=== PATIENT | female | born 1990 | race Caucasian/White ===

== ENCOUNTER 2023-12-11 14:48 | Outpatient (CLI) | payer MEDICAID, SELFPAY ==
--- OUTSIDE RECORDS SUMMARY | 2023-12-30 08:27 | XMS_ITS | Referral Summary ---
Author Organization [place] Address [address] [place] [address] Care Team Providers Care Meat Cutter Apprentice Name Role Phone [facility] Primary [facility] Provider Allergies No known active allergies Medications Medication Sig Dispensed Refills Start Date End Date Status Vit-Fe Fumarate-FA ( MULTIVITAMIN PLUS IRON) 27-0.8 MG TABS per tabletIndications:Pregn kelly Take 1 tablet by mouth daily Active vitamin B complex with vitamin C (VITAMIN B COMPLEX) TABS tablet Take 1 tablet by mouth daily Active Active Problems Problem Noted Date Diagnosed Date Indication for care in labor and delivery, deliv ered 09/07/2016 Labor and delivery, indication for care 09/06/19 17 Social History Tobacco Use Types Packs/Day Years Used Date Smoking Tobacco: Never Smokeless Tobacco: Never Alcohol Use Standard Drinks/Week Comments No 0 (1 standard drink = 0.6 oz pur e alcohol) Adolescent Education Answer Date Record ed Getting School Help Needed Not on file 05/22 Sex and Gender Information Value Date Recorded Sex Assigned at Not on file Gender Identity Not on file Sexual Orientation Not on file Last Filed Vital Signs Vital Sign Reading Time Taken Comments Blood Pressure 113/61 01/18/2018 10:24 AM CDT Pulse - - Temperature 37 ??C (98.6 ??F) 01/18/2018 10:24 AM CDT Respiratory Rate 18 01/18/2018 10:24 AM CDT Oxygen Saturation 99% 01/18/2018 10:24 AM CDT Inhaled Oxygen Concentration - - Weight 80 kg (176 lb 5.9 oz) 01/18/2018 10:29 AM CDT Height 175.3 cm (5' 9) 09/06/2016 7:56 PM SUPERINTENDENT CUSTODIAN JANITOR Body Mass Index 26.05 09/06/2016 7:56 PM SUPERINTENDENT CUSTODIAN JANITOR Plan of Treatment Not on file Procedures Procedure Name Priority Date/Time Associated Diagnosis Comments HIV ANTIGEN ANTIBODY COMBO STAT 09/06/2016 8:20 PM SUPERINTENDENT CUSTODIAN JANITOR from Last 3 Months or Most Recently Relevant to Health Maintenance Results * HIV Antigen Antibody Combo (09/06/2016 8:20 PM SUPERINTENDENT CUSTODIAN JANITOR) HIV Antigen Antibody Combo Nonreactive HIV-1 p24 Ag & HIV-1/HIV-2 Ab Not Detected NR [facility] Blood specimen (specimen) 09/06/2016 8:20 PM SUPERINTENDENT CUSTODIAN JANITOR 09/06/2016 8:29 PM SUPERINTENDENT CUSTODIAN JANITOR China Kennedy MD LAB - BLOOD ORD ERABLES [facility] [address] [place] [address] from Last 3 Months or Most Recently Relevant to Health Maintenance Care Teams Meat Cutter Apprentice Relationship Specialty Start Date End Date [facility] - [facility] [address] [place] [address] PCP - General 01/18/18
--- OUTSIDE RECORDS SUMMARY | 2023-12-30 08:27 | XMS_ITS | Clinical Summary ---
Author Organization [facility] s [facility] Address [place], [place] [address] Care Team Providers Care Wire Hanger Name Role Phone Pcp, No Primary Care Provider Unavailabl e Allergies No known active allergies Medications Medication Sig Dispensed Refills Start Date End Date Status ibuprofen (MOTRIN IB) 200 mg tabletIndications : (normal spontaneous vaginal delivery) Take 4 tablets by mouth 3 times daily with meals. Take with food. 90 tablet 12/25/2018 Active acetaminophen (TYLENOL) 325 mg tabletIndications : (normal spontaneous vaginal delivery) Take 1-2 tablets by mouth every 4 hours if needed (mild pain). Max acetaminophen dose: 4000mg in 24 hrs. 100 tablet 12/25/2018 Active vitamin-folic acid 1 mg ( RX) tablet/capsule Take 1 tablet by mouth once daily. 90 tablet 3 Active docusate (COLACE) 100 mg capsuleIndication s: (normal spontaneous vaginal delivery) Take 1 capsule by mouth 2 times daily. 100 capsule 12/25/2018 Active Active Problems Problem Noted Date Diagnosed Date Rubella non-immune status, antepartum 12/25/2018 Tetanus, diphtheria, and trudy llular pertussis (Tdap) vaccination declined 12/25/2018 HSV (herpes simplex virus) infection 12/25/2018 (normal spontaneous vaginal delivery) 12/25 Resolved Problems Problem Noted Date Diagnosed Date Resolved Date Multigravida in third trimester 12/25/2018 12/25/2018 Anemia affecting in third trimester 12/26/19 19 12/25/2018 Social History Tobacco Use Types Packs/Day Years Used Date Smoking Tobacco: Never Smokeless Tobacco: Never Alcohol Use Standard Drinks/Week Comments Not Currently 0 (1 standard drink = 0.6 oz pur e alcohol) Sex and Gender Information Value Date Recorded Sex Assigned at Not on file Gender Identity Not on file Sexual Orientation Not on file Obstetrics History Para Term AB IAB SAB Ectopic Multiple Livin g Live Births 6 5 5 1 1 4 4 Date Outcome GA Total Labor Labor/2nd/3rd Weight Sex Delivery Anes PTL Kelley A1 A5 Name Cl in Term Term Term Term SAB 12/25 Term 39w 6d 3.8 kg (8 lb 6 oz) M Vag Epidu ral Melody ng 8 9 LEBAR ON,BB HONG LLE Delivery Location:[facility] [id number] [place]) Last Filed Vital Signs Vital Sign Reading Time Taken Comments Blood Pressure 102/50 12/26/2018 8:18 AM CDT Pulse 66 12/26/2018 8:18 AM CDT Temperature 36.6 ??C (97.9 ??F) 12/26/2018 8:18 AM CD T Respiratory Rate 16 12/26/2018 8:18 AM CDT Oxygen Saturation 98% 12/26/2018 8:18 AM CDT Inhaled Oxygen Concentration - - Weight 87.4 kg (192 lb 9.6 oz) 12/24/2018 8:33 P M CDT Height 175.3 cm (5' 9) 12/24/2018 8:33 PM CDT Body Mass Index 28.44 12/24/2018 8:33 PM CDT Plan of Treatment Not on file Advance Directives * Full Code (Latest Code Status on File) Date Activated Date Inactivated Comments 12/25/2018 3:49 AM 12/26/2018 11:06 AM Care Teams Wire Hanger Relationship Specialty Start Date End Date Pcp, No . PCP - General 12/08/18
--- OUTSIDE RECORDS SUMMARY | 2023-12-30 08:27 | XMS_ITS | Clinical Summary ---
Author Organization [place] Address [address] [place] [address] Care Team Providers Care Furnace Liner Name Role Phone [facility] Primary [facility] Provider Allergies No known active allergies Medications [...] 175.3 cm (5' 9) 09/06/2016 7:56 PM FRONT TENDER Body Mass Index 26.05 09/06/2016 7:56 PM FRONT TENDER Plan of Treatment Health Maintenance Due Date Last Done Comments ADVANCE CARE PLANNING 1990 ANNUAL REVIEW OF HM ORDERS 1990 YEARLY PREVENTIVE VISIT 1990 HEPATITIS C SCREENING 2008 HEPATITIS B IMMUNIZATION (1 of 3 - 19+ 3-dose series) 2009 PAP 2011 DTAP/TDAP/TD IMMUNIZATION (1 - Tdap) 2015 COVID-19 Vaccine (1 - 2022-2 4 season) 2023 PHQ-2 (once per calendar year) 2023 INFLUENZA VACCINE (Season Ended) 2024 HIV SCREENING Completed 09/06/2016 HPV IMMUNIZATION Aged Out No longer e ligible based on patient's age to complete this topic IPV IMMUNIZATION Aged Out No longer e ligible based on patient's age to complete this topic MENINGITIS IMMUNIZATION Aged Out No l onger eligible based on patient's age to complete this topic Pneumococcal Vaccine: Pediat rics (0 to 5 Years) and At-Risk Patients (6 to 64 Years) Aged Out No longer eligi ble based on patient's age to complete this topic RSV MONOCLONAL ANTIBODY Aged Out No l onger eligible based on patient's age to complete this topic Procedures Procedure Name Priority Date/Time Associated Diagnosis Comments HIV ANTIGEN ANTIBODY COMBO STAT 09/06/2016 8:20 PM FRONT TENDER from Last 3 Months or Most Recently Relevant to Health Maintenance Results * HIV Antigen Antibody Combo (09/06/2016 8:20 PM FRONT TENDER) HIV Antigen Antibody Combo Nonreactive HIV-1 p24 Ag & HIV-1/HIV-2 Ab Not Detected NR [facility] Blood specimen (specimen) 09/06/2016 8:20 PM FRONT TENDER 09/06/2016 8:29 PM FRONT TENDER China Kennedy MD LAB - BLOOD ORD ERABLES [facility] [address] [place] [address] from Last 3 Months or Most Recently Relevant to Health Maintenance Care Teams Furnace Liner Relationship Specialty Start Date End Date [facility] [address] [place] [address] PCP - General 01/18/18
== END 2023-12-11 14:49 | disposition home or self-care (01) ==
LOC: NFLDREF 12-30 08:25
PROVIDERS: Visit Provider Advanced Practice Midwife
DX: Z34.91 Encounter for supervision of normal pregnancy, unspecified, first trimester (principal)
CPT/HCPCS: 86592; 86703; 86704; 86706; 86762; 86787; 86803; 86850; 86900; 86901; 87086; 87340

== ENCOUNTER 2024-02-07 13:03 | Outpatient (CLI) | payer MEDICAID, SELFPAY ==
--- NOTE | 2024-02-07 13:45 | CRLHL7_ITS ---
For Patients: As a result of the Century Cures Act, medical imaging exams and procedure reports are released immediately into your electronic medical record. You may view this report before your referring provider. If you have questions, please contact your health care provider. INDICATION: Evaluate anatomy. COMPARISON: none TECHNIQUE: Real time moses scale imaging of the fetus was performed as well as color Doppler analysis of the umbilical vessels. FINDINGS: Sonographic imaging demonstrates a single living intrauterine gestation. Fetus demonstrates a regular cardiac rate of 157 beats per minute. Fetus has a vertex. The placenta lies anteriorly without evidence of placenta previa. Edge of the placenta is located 5.5 cm from the internal cervical os. Amniotic fluid volume appears normal. Single deepest vertical pocket: 5.5 cm. The cervix is closed and measures 4.3 cm in length. The composite ultrasound gestational age is calculated at 20 weeks 3 days with an estimated sonographic due date of 06/23/2024. The estimated weight is 334 grams which lies at the 84th %. The following biometric measurements were obtained: Biparietal diameter: 4.9 cm/20 weeks 5 days 92nd% Head circumference: 17.5 cm/20 weeks 0 days 69th% Abdominal circumference: 15.1 cm/20 weeks 2 days 75th% Femur length: 3.2 cm/19 weeks 6 days 59th% The HC/AC ratio measures: 1.15 range (1.07-1.25) On anatomic survey, there is a normal appearance of the cerebral ventricles, cavum septi pellucidi, cisterna magna and cerebellum. The nose, lips, and facial profile appear normal. The cervical, thoracic and lumbar spine are well visualized and appear normal. There is a normal four-chamber heart view and the left and right ventricular outflow tracts appear normal. The diaphragm and stomach appear normal. The kidneys and bladder also appear normal. There is a normal three-vessel cord and cord insertion site. The four extremities appear normal. IMPRESSION: Normal OB ultrasound exam with concordance of clinical and sonographic dating. No intrinsic abnormalities noted on anatomic survey. Dictated by Jonas Martin MD @ 02/07/2024 4:01:21 PM (Electronically Signed)
== END 2024-02-07 13:04 | disposition home or self-care (01) ==
LOC: US 13:03
PROVIDERS: Visit Provider Advanced Practice Midwife
DX: Z34.92 Encounter for supervision of normal pregnancy, unspecified, second trimester (principal); Z3A.20 20 weeks gestation of pregnancy
CPT/HCPCS: 76805

== ENCOUNTER 2024-04-08 10:27 | Outpatient (CLI) | payer MEDICAID, SELFPAY ==
--- OUTSIDE RECORDS SUMMARY | 2024-04-12 13:25 | XMS_ITS | Referral Summary ---
Author Organization [place] Address [address] [place] [address] Care Team Providers Care Associate Director Qa Name Role Phone [facility] Primary [facility] Provider Allergies No known active allergies Medications [...] 175.3 cm (5' 9) 09/06/2016 7:56 PM HOSPITALITY AIDE Body Mass Index 26.05 09/06/2016 7:56 PM HOSPITALITY AIDE Plan of Treatment Not on file Care Teams Associate Director Qa Relationship Specialty Start Date End Date [facility] [address] [place] [address] PCP - General 01/18/18
--- OUTSIDE RECORDS SUMMARY | 2024-04-12 13:25 | XMS_ITS | Clinical Summary ---
Author Organization [place] Address [address] [place] [address] Care Team Providers Care Refinisher Name Role Phone [facility] Primary [facility] Provider Allergies No known active allergies [...] 175.3 cm (5' 9) 09/06/2016 7:56 PM PHYSICIAN'S AIDE Body Mass Index 26.05 09/06/2016 7:56 PM PHYSICIAN'S AIDE Plan of Treatment Not on file Care Teams Refinisher Relationship Specialty Start Date End Date [facility] [address] [place] [address] PCP - General 01/18/18
--- OUTSIDE RECORDS SUMMARY | 2024-04-12 13:25 | XMS_ITS | Clinical Summary ---
Author Organization [facility] Address [place], [place] [address] Care Team Providers Care Clinical Lab Clerk Name Role Phone Pcp, No Primary Care [...] Outcome GA Total Labor Labor/2nd/3rd Weight Sex Type Anes PTL Kelley A1 A5 Name Clin Term Term Term Term SAB 2018 Term 39w 6d 3.8 kg (8 lb 6 oz) M Vag Epidur al Livin g 8 9 JACKSON Greer,BB GIANCARLO CAMEJO Delivery Location:[facility] ([facility] [id number] [place]) Last Filed Vital Signs Vital Sign Reading [...] 3:49 AM 12/26/2018 11:06 AM Care Teams Clinical Lab Clerk Relationship Specialty Start Date End Date Pcp, No . PCP - General 12/08/18
== END 2024-04-08 10:28 | disposition home or self-care (01) ==
LOC: NFLDREF 04-12 13:23
PROVIDERS: Visit Provider Advanced Practice Midwife
DX: Z34.83 Encounter for supervision of other normal pregnancy, third trimester (principal)
CPT/HCPCS: 86592

== ENCOUNTER 2024-05-01 09:23 | Outpatient (CLI) | payer MEDICAID, SELFPAY ==
--- OUTSIDE RECORDS SUMMARY | 2024-05-01 09:26 | XMS_ITS | Clinical Summary ---
Author Organization [employer] [facility] Address [place], [place] [address] Care Team Providers Care Director Of Global Sales Name Role Phone Pcp, No Primary Care [...] 8 9 JACKSON Greer,BB GIANCARLO CAMEJO Delivery Location:[facility] [id number] [place]) Last Filed Vital Signs Vital Sign Reading [...] 3:49 AM 12/26/2018 11:06 AM Care Teams Director Of Global Sales Relationship Specialty Start Date End Date Pcp, No . PCP - General 12/08/18
--- OUTSIDE RECORDS SUMMARY | 2024-05-01 09:26 | XMS_ITS | Referral Summary ---
Author Organization [place] Address [address] [place] [address] Care Team Providers Care Mop Handle Assembler Name Role Phone [facility] Primary [facility] [...] 175.3 cm (5' 9) 09/06/2016 7:56 PM IV RN Body Mass Index 26.05 09/06/2016 7:56 PM IV RN Plan of Treatment Not on file Care Teams Mop Handle Assembler Relationship Specialty Start Date End Date [facility] [address] [place] [address] PCP - General 01/18/18
--- OUTSIDE RECORDS SUMMARY | 2024-05-01 09:26 | XMS_ITS | Clinical Summary ---
Author Organization [place] Address [address] [place] [address] Care Team Providers Care Imaging Scheduler Name Role Phone [facility] Primary [facility] Provider Allergies No known active allergies Medications [...] 175.3 cm (5' 9) 09/06/2016 7:56 PM CATERING SERVER Body Mass Index 26.05 09/06/2016 7:56 PM CATERING SERVER Plan of Treatment Not on file Care Teams Imaging Scheduler Relationship Specialty Start Date End Date [facility] [address] [place] [address] PCP - General 01/18/18
[2024-05-01 09:48] VITALS: BP 116/59; PULSE 90; TEMP 36.8
[2024-05-01 10:11] LABS: Amnisure Rom* Negative
--- NOTE | 2024-05-01 10:29 | PC.OBNST ---
NST Note NST Note Start: 05/01/24 09:25 Freq: ONCE Status: Complete Protocol: Document 05/01/24 10:17 JOSEPHINE (Rec: 05/01/24 10:19 JOSEPHINE Desktop) NST Note 8 Para (# of births) 6 EDC 06/30/24 Gestational Age In Weeks & Days 31 Weeks & 3 Days Patient Presented with Complaint(s) of Contractions/cramping,Leaking fluid Other Complaints Pt was having intercourse last night around 2100, reported a large gush of watery fluid and cramping an hour after fluid gush that has been irregular but has been continuing into this morning. When asked about timing of cramping, patient reported that she has been trying to ignore it and does not know how often or how long cramps last. Denies continuous leaking. Reactive Yes Appropriate for Gestational Age Yes GRAHAM Mahajan Date 05/01/24 Reactive Yes Appropriate for Gestational Age Yes GRAHAM South Date 05/01/24 OB NST charge Yes Complete NST Note via Write Note Yes The provider's electronic signature indicates the NST is reactive/appropriate for gestational age. *Note to provider: If an addendum is required, open the patient's chart and click on the note under the Nurse/Allied Health tab.
== END 2024-05-01 10:30 | disposition home or self-care (01) ==
LOC: OB OUT 09:24 → OB 09:24
PROVIDERS: Visit Provider Midwife
DX: O47.03 False labor before 37 completed weeks of gestation, third trimester (principal); Z3A.31 31 weeks gestation of pregnancy
CPT/HCPCS: 59025; 84112; G0463

== ENCOUNTER 2024-06-03 15:23 | Outpatient (CLI) | payer MEDICAID, SELFPAY ==
--- OUTSIDE RECORDS SUMMARY | 2024-06-05 05:55 | XMS_ITS | Clinical Summary ---
Author Organization [place] Address [address] [place] [address] Care Team Providers Care Inbound Call Center Representative Name Role Phone [facility] Primary [facility] Provider Allergies No known active [...] on file Legal Sex Female 5:13 AM DISEASE CONTROL INSPECTOR Gender Identity Not on file Sexual Orientation [...] 175.3 cm (5' 9) 09/06/2016 7:56 PM DISEASE CONTROL INSPECTOR Body Mass Index 26.05 09/06/2016 7:56 PM DISEASE CONTROL INSPECTOR Plan of Treatment Not on file Care Teams Inbound Call Center Representative Relationship Specialty Start Date End Date [facility] [address] [place] [address] PCP - General 01/18/18
--- OUTSIDE RECORDS SUMMARY | 2024-06-05 05:55 | XMS_ITS | Clinical Summary ---
Author Organization [employer] [facility] Address [place], [place] [address] Care Team Providers Care Snap Attacher Name Role Phone Pcp, No Primary Care [...] 8 9 JACKSON Greer,BB GIANCARLO CAMEJO Delivery Location:[facility] ([facility] [id number] [place]) Last Filed Vital Signs Vital Sign Reading [...] 3:49 AM 12/26/2018 11:06 AM Care Teams Snap Attacher Relationship Specialty Start Date End Date Pcp, No . PCP - General 12/08/18
--- OUTSIDE RECORDS SUMMARY | 2024-06-05 05:55 | XMS_ITS | Referral Summary ---
Author Organization [place] Address [address] [place] [address] Care Team Providers Care Fixer Supervisor Name Role Phone [facility] Primary [facility] Provider Allergies No known active allergies [...] on file Legal Sex Female 5:13 AM FIELD TECHNICAL SPECIALIST Gender Identity Not on file Sexual Orientation [...] 175.3 cm (5' 9) 09/06/2016 7:56 PM FIELD TECHNICAL SPECIALIST Body Mass Index 26.05 09/06/2016 7:56 PM FIELD TECHNICAL SPECIALIST Plan of Treatment Not on file Care Teams Fixer Supervisor Relationship Specialty Start Date End Date [facility] [address] [place] [address] PCP - General 01/18/18
== END 2024-06-03 15:24 | disposition home or self-care (01) ==
LOC: NFLDREF 06-05 05:53
PROVIDERS: Visit Provider Advanced Practice Midwife
DX: Z34.93 Encounter for supervision of normal pregnancy, unspecified, third trimester (principal); Z3A.36 36 weeks gestation of pregnancy
CPT/HCPCS: 87081; 87653

== ENCOUNTER 2024-06-04 15:00 | Outpatient (CLI) | payer MEDICAID, SELFPAY ==
--- NOTE | 2024-06-04 15:00 | CRLHL7_ITS ---
For Patients: As a result of the Century Cures Act, medical imaging exams and procedure reports are released immediately into your electronic medical record. You may view this report before your referring provider. If you have questions, please contact your health care provider. INDICATION: Third trimester scan, evaluate growth. Small for dates. COMPARISON: 02/07/2024 TECHNIQUE: Real time moses scale imaging of the fetus was performed. FINDINGS: Sonographic imaging demonstrates a single living intrauterine gestation. Fetus demonstrates a regular cardiac rate of 142 beats per minute. Fetus has a vertex position. The placenta lies anterior. Amniotic fluid volume appears normal and there is a single deepest vertical pocket: 7.1 cm. The estimated weight is 3172gm which lies at the 79th %. On the prior OB ultrasound exam dated 02/07/2024 the estimated weight was at the 84th%. BPD and HC greater than 97th percentile. AC 57th percentile. FL 45th percentile. The HC/AC ratio measures 1.10 range (0.87-1.06). IMPRESSION: Sonographic gestational age 38 weeks 6 days and sonographic due date 06/12/2024. Sonographic age 18 days ahead of the clinical age. Estimated weight 79th percentile. Abdominal circumference 57th percentile. BPD and HC greater than 97th percentile. Dictated by Jonas Martin MD @ 06/05/2024 12:53:59 PM (Electronically Signed)
--- OUTSIDE RECORDS SUMMARY | 2024-06-04 15:02 | XMS_ITS | Referral Summary ---
Author Organization [place] Address [address] [place] [address] Care Team Providers Care Transport Engineer Name Role Phone [facility] Primary [facility] Provider Allergies No known active allergies Medications Vit-Fe Fumarate-FA ( MULTIVITAMIN PLUS IRON) 27-0.8 MG TABS per tabletIndications : Take 1 tablet by mouth daily Active [...] School Help Needed Not on file 05/22 Comments Unknown Sex and Gender Information Value Date Recorded Sex Assigned at Not on file Legal Sex Female 5:13 AM PRACTICE LEAD Gender Identity Not on file Sexual Orientation [...] 175.3 cm (5' 9) 09/06/2016 7:56 PM PRACTICE LEAD Body Mass Index 26.05 09/06/2016 7:56 PM PRACTICE LEAD Plan of Treatment Not on file Care Teams Transport Engineer Relationship Specialty Start Date End Date [facility] [address] [place] [address] PCP - General 01/18/18
--- OUTSIDE RECORDS SUMMARY | 2024-06-04 15:02 | XMS_ITS | Clinical Summary ---
Author Organization [employer] [facility] s & [facility] Address [place], [place] [address] Care Team Providers Care Home Health Administrator Name Role Phone Pcp, No Primary Care [...] 8 9 JACKSON Greer,BB GIANCARLO CAMEJO Delivery Location:[facility] ([facility] [id number] [place]) Last Filed Vital Signs Vital Sign Reading [...] 3:49 AM 12/26/2018 11:06 AM Care Teams Home Health Administrator Relationship Specialty Start Date End Date Pcp, No . PCP - General 12/08/18
--- OUTSIDE RECORDS SUMMARY | 2024-06-04 15:02 | XMS_ITS | Clinical Summary ---
Author Organization [place] Address [address] [place] [address] Care Team Providers Care Vault Clerk Name Role Phone [email or web address] Primary [facility] Provider Allergies No known active allergies [...] on file Legal Sex Female 5:13 AM CANE SPLICER Gender Identity Not on file Sexual Orientation [...] 175.3 cm (5' 9) 09/06/2016 7:56 PM CANE SPLICER Body Mass Index 26.05 09/06/2016 7:56 PM CANE SPLICER Plan of Treatment Not on file Care Teams Vault Clerk Relationship Specialty Start Date End Date [facility] [[email or web address]] [address] [place] [address] PCP - General 01/18/18
== END 2024-06-04 15:01 | disposition home or self-care (01) ==
LOC: US 15:00
PROVIDERS: Visit Provider Advanced Practice Midwife
DX: O36.5930 Maternal care for other known or suspected poor fetal growth, third trimester, not applicable or unspecified (principal); Z3A.38 38 weeks gestation of pregnancy
CPT/HCPCS: 76816; 82728

== ENCOUNTER 2024-06-29 23:09 | Inpatient (IN) | payer MEDICAID, SELFPAY ==
--- OUTSIDE RECORDS SUMMARY | 2024-06-29 23:09 | XMS_ITS | Clinical Summary ---
Author Organization [facility] s [facility] Address [place], [place] [address] Care Team Providers Care Auto Body Detailer Name Role Phone Pcp, No Primary Care [...] Epidur al Livin g 8 9 JACKSON Greer,LOUIS CAMEJO Delivery Location:[facility] ([facility] [id number] [place]) Last Filed Vital Signs Vital Sign Reading Time Taken Comments Blood Pressure 102/50 12/26/2018 8:18 AM CDT Pulse 66 12/26/2018 8:18 AM CDT Temperature 36.6 C (97.9 F) 12/26/2018 8:18 AM CDT Respiratory Rate 16 12/26/2018 8:18 AM CDT [...] 3:49 AM 12/26/2018 11:06 AM Care Teams Auto Body Detailer Relationship Specialty Start Date End Date Pcp, No . PCP - General 12/08/18
--- OUTSIDE RECORDS SUMMARY | 2024-06-29 23:09 | XMS_ITS | Clinical Summary ---
Author Organization [place] Address [address] [place] [address] Care Team Providers Care Food Or Baggage Handling Rampman Name Role Phone [facility] Primary [facility] Provider Allergies No known active allergies [...] on file Legal Sex Female 5:13 AM CHANGE MANAGEMENT FACILITATOR Gender Identity Not on file Sexual Orientation Not on file Last Filed Vital Signs Vital Sign Reading Time Taken Comments Blood Pressure 113/61 01/18/2018 10:24 AM CDT Pulse - - Temperature 37 C (98.6 F) 01/18/2018 10:24 AM CDT Respiratory Rate 18 01/18/2018 10:24 AM CDT Oxygen Saturation 99% 01/18/2018 10:24 AM CDT Inhaled Oxygen Concentration - - Weight 80 kg (176 lb 5.9 oz) 01/18/2018 10:29 AM CDT Height 175.3 cm (5' 9) 09/06/2016 7:56 PM CHANGE MANAGEMENT FACILITATOR Body Mass Index 26.05 09/06/2016 7:56 PM CHANGE MANAGEMENT FACILITATOR Plan of Treatment Not on file Care Teams Food Or Baggage Handling Rampman Relationship Specialty Start Date End Date [facility] [address] [place] [address] PCP - General 01/18/18
--- OUTSIDE RECORDS SUMMARY | 2024-06-29 23:09 | XMS_ITS | Referral Summary ---
Author Organization [facility] Address [address] [place] [id number] Care Team Providers Care Testing Consultant Name Role Phone [facility] Primary [facility] Provider Allergies No known active allergies Medications [...] on file Legal Sex Female 5:13 AM COMMUNICATIONS DIRECTOR Gender Identity Not on file Sexual Orientation [...] 175.3 cm (5' 9) 09/06/2016 7:56 PM COMMUNICATIONS DIRECTOR Body Mass Index 26.05 09/06/2016 7:56 PM COMMUNICATIONS DIRECTOR Plan of Treatment Not on file Care Teams Testing Consultant Relationship Specialty Start Date End Date [facility] [address] [place] [address] PCP - General 01/18/18
[2024-06-29 23:34] VITALS: BMI 29.7
[2024-06-29 23:39] VITALS: BP 117/74; PULSE 88; TEMP 36.8
[2024-06-29 23:40] VITALS: PULSE 88; O2SAT 99
[2024-06-30] VITALS (32 sets, daily range): BP systolic 95–123; BP diastolic 54–68; PULSE 64–107; RESP 16–20; TEMP 36.5–36.8; O2SAT 96–100
[2024-06-30 00:11] LABS: Basophils Absolute Auto 0.04 K/uL (0.00-0.30); Basophils Percent Auto 0.5 % (0.0-3.0); Eosinophils Absolute Auto 0.06 K/uL (0.00-0.50); Eosinophils Percent Auto 0.7 % (0.0-7.0); Hematocrit 34.1 % (33.0-51.0); Hemoglobin* 11.2 gm/dL (12.0-16.0); Immature Granulocytes Abs Auto 0.01 K/uL (0.00-0.30); Immature Granulocytes Pct Auto 0.1 %; Lymphocytes Absolute Auto 2.17 K/uL (0.90-2.90); Mean Corpuscular HGB Conc 33 gm/dL (32-36); Mean Corpuscular Hemoglobin 27 pg (26-34); Mean Corpuscular Volume 83 fL (80-100); Monocytes Percent Auto 6.3 % (0.0-11.0); Neutrophils Absolute Auto 5.55 K/uL (1.7-7.0); Neutrophils Percent Auto 66.4 % (42.0-72.0); Platelet Count* 261 K/uL (140-440); RDW Coefficient of Variation % 12.5 % (11.5-15.5); Red Blood Count 4.13 m/uL (4.00-5.20); White Blood Count* 8.36 K/uL (4.50-11.00)
[2024-06-30 00:12] LABS: Slide Review Reflex No
--- NOTE | 2024-06-30 02:42 | P.LDBA_ITS ---
Subjective History of Present Illness Date Seen: 06/30/24 Narrative: Patient is being admitted to Labor and Delivery for active labor. She is a 33 year old at 39w6d gestation. Her full history and physical was dictated by Rafaela Hammonds CNM on 06/10/2024. Please see this for details. She is starting to feel very shaky and has had a small emesis. She is interested in breaking her water so she can be done, but wants to try and rest a little first. Her and mother are here and supportive. Good FM, no LOF, no vaginal bleeding. She states she is coping well with her labor. Specific Issues/Plans Mother is a Medical Historian in [place], plans to be here around time she is due. H&P done by Sommer Hammonds CNM on 06/10/24 1. Grand Multiparity 2. History of hemorrhage IV in place, plan AMTSL Consider TXA, sent information to her about this via mail; wants in room 3. History of prolonged prodromal labor Pitocin augmentation of labor needed in past deliveries w/ last two deliverie s 4. Rubella nonimmune 5. History of macrosomia 3rd baby was largest at 10lb 2oz 6. Hx of Polyhydramnios w/ previous 7. Son with pyloric stenosis, 6th child Tx to NICU after . Had feeding tube for a few months. Offered Level II US this , declines 8. Son with suspected Myasthenia gravis, 6th child 9. Hx shoulder dystocia, w/ home for 1st, 2nd, and 3rd births Has not had one since 10. Measuring small for dates Growth US: 79% Declines all vaccines OB - Problem Based A/P Additional Plan (1) Grand multiparity: Status: Acute (2) History of shoulder dystocia in prior , currently : Status: Acute (3) History of hemorrhage, currently : Status: Acute (4) : Status: Acute (5) Pain during labor: Status: Acute Plan ASSESSMENT:?? 33 at 39 6/7 weeks gestation?? complicated by:??none, but pertinent past OB history Labor type: Spontaneous, Early/Active labor?? Category 2 FHR pattern.??? Labor complicated by: Hx shoulder dystocia, grand multiparity, Hx PP hemorrhage?? GBS negative? ?? PLAN:?? 1. Routine intrapartum cares as ordered. Continue with expectant management?? 2. Monitoring per policy, continuous or intermittent as indicated?? 3. Planning unmedicated . Candidate for analgesia of choice.??? 4. Patient encouraged to reposition and ambulate to promote physiologic labor and .?? 5. Planning AMTSL. TXA in room for , SL placed. Type and screen sent. Plan to have 2nd nurse in room for .? 6. Anticipate ? OB Exam Physical Exam Vital signs: Temp Pulse BP Pulse Ox 98.2 F 88 117/74 100 06/29/24 23:39 06/29/24 23:39 06/29/24 23:39 06/30/24 02:37 Narrative: Vitals Reviewed Constitutional:? Alert and oriented x3 HEENT:? Normocephalic, atraumatic Neck:? Supple Lungs:? Clear to auscultation bilaterally Heart:? Regular rate and rhythm, no murmur, rub or gallop Abdomen:? Soft, nontender, and gravid. Vertex by Lee's, confirmed with cervical exam. Extremities:? No edema or erythema Cervix: 6 cm/80%/-1 station/vertex/bbow NST: 130 bpm/moderate variability/present accelerations/ intermittent possible late x 1/contractions q 3-4 min
--- NOTE | 2024-06-30 05:23 | P.OBPN_ITS ---
Subjective Date Seen: 06/30/24 Narrative: Yuli came in for spontaneous labor and has made change slowly. She is coping well, but wanted some rest before AROM. Her and mother are here supporting her. She is planning natural . Good FM, no vaginal bleeding. Objective Exam: Objective: Constitutional: Alert and oriented x3, no distress, coping well Vital signs stable, see nurse documentation Abdomen: gravid, contractions palpate moderate with contractions and soft between Cervix: 7 cm/90%/-1 station/vertex, BBOW, AROM clear fluid with consent NST: 140 bpm/moderate variability/accelerations present/no decelerations/contr actions have spaced then changed to intermittent monitoring Vital Signs: Last Vital Signs Temp 98.2 F 06/29/24 23:39 Pulse 77 06/30/24 05:02 BP 105/57 L 06/30/24 05:02 Pulse Ox 100 06/30/24 02:37 Plan Plan: ASSESSMENT:?? 33 at 39 6/7 weeks gestation?? complicated by:??none, but pertinent past OB history Labor type: Spontaneous, Early/Active labor?? Category 2 FHR pattern.??? Labor complicated by: Hx shoulder dystocia, grand multiparity, Hx PP hemorrhage?? GBS negative? ?? PLAN:?? 1. Routine intrapartum cares as ordered. Continue with expectant management, but augmented with AROM per patient reuqest?? 2. Monitoring per policy, intermittent as indicated?? 3. Planning unmedicated . Candidate for analgesia of choice.??? 4. Patient encouraged to reposition and ambulate to promote physiologic labor and .?? 5. Planning AMTSL. TXA in room for , SL placed. Type and screen sent. Plan to have 2nd nurse in room for .? 6. Anticipate ?
[2024-06-30] MEDS: LACTATED RINGERS 1000 ML 1,000 ML 999 ML IV (07:08)
[2024-06-30] MEDS: OXYTOCIN 30 unit/500 ML in NS 30 UNIT/500 ML BAG 300 UNIT IVPB (07:20)
[2024-06-30] MEDS: IBUPROFEN 600 MG TABLET PO ×2 (07:45→20:31)
--- NOTE | 2024-06-30 09:50 | W.PM.OBVAGDE ---
OB Procedure Vag Delivery Mother Details Mother Details: The patient is a 33 year-old, 8, now Para 7, admitted on 06/29/24 at 40.0 weeks gestation. : 8 Para: 7 Weeks Gestation: 40.0 Admission Date: 06/30/24 Additional Details Amniotic Membrane Status: AROM Amniotic Membrane Rupture Date: 06/30/24 Amniotic Membrane Rupture Time: 05:17 Amniotic Membrane Fluid Description: Clear Analgesia/Anesthesia Type: None Waterbirth: No Pitcoin: Yes (AMTSL only) Intrapartal Events: Labor Augmentation Delivery augmentation: rupture of membranes Labor Onset: 01:12 Complete: 07:14 (assumed with pushing) Pushin:14 Heart: heart tones during second stage were category II with deep variable and baby quickly delivering after. Delivery Details Delivery Date: 06/30/24 Delivery Time: 07:15 Route of delivery: Gender: Male Infant Viability: Alive; Heart Rate Present Position at Delivery: OA Delivery Details: Patient was admitted for spontaneous onset of labor and progressed normally. AROM of clear fluid at 0517. Patient requested pain management but was having some heart rate changes that were managed with position change and IV fluids. CNM got urgently called to room as patient suddenly started to feel urge to push. Patient was assumed complete with pushing at 0714. Head delivered as CNM got to bedside gloved. of a viable male at 0715 in semi-reclined position on the bed. Vertex delivered OA with very tight nuchal cord and shoulder dystocia of 40 seconds that resolved easily with Zaira and maternal pushing efforts. Body delivered easily and without incident. Nuchal was reduced after delivery of the body. Infant passed to mothers abdomen with a vigorous cry. Cord was clamped and cut at > 5 minutes. APGARS were 8 at one minute and 8 at five minutes respectively. Mouth was bulb suctioned. Intact placenta with a 3 vessel cord delivered spontaneously at 0726. Fundus firm. Intact perineum identified and repaired in typical fashion. QBL 300 cc. Mother and baby stable; mother plans to breastfeed. Infant weight 8lb 7oz. 1 Minute Interval Total Score: 8 5 Minute Interval Total Score: 8 Additional Details Shoulder Dystocia: Yes Placenta Delivery Time: :26 Placental Delivery Description: Spontaneous Delivery repair: Vicryl Procedure Done: Global Blood Loss: 300 Laceration: None Blood Loss Measurement Type: QBL Bakri Used: No Sponge/Need Count Correct: Yes Cord Vessel Description: 3 Vessels, Nuchal Cord and Reduced (after delivery of body) Event Summary Status: Mother and infant were stable after delivery. Disposition: floor
[2024-07-01 01:58] VITALS: BP 81/41; PULSE 65; RESP 16; TEMP 37.1; O2SAT 97
[2024-07-01 04:01] VITALS: BP 106/63; PULSE 68; RESP 16; TEMP 36.6; O2SAT 96
[2024-07-01 06:31] LABS: Hemoglobin* 10.3 gm/dL (12.0-16.0)
[2024-07-01] MEDS: IBUPROFEN 600 MG TABLET PO (08:34)
[2024-07-01 08:40] VITALS: BP 107/57; PULSE 71; RESP 16; TEMP 36.6; O2SAT 97
--- NOTE | 2024-07-01 10:24 | P.DS_ITS ---
DS: Providers Provider Date Seen: 07/01/24 Date of admission: 06/29/24 23:09 Primary care physician: Not a Local Provider Admitting Clinician: Savannah Workman CNM Attending Physician on discharge: Jessica Hammonds CNM Date of Discharge: 07/01/24 DS: Diagnosis Discharge Diagnosis (1) care and examination immediately after delivery: Status: Acute (2) Lactating mother: Status: Acute Exam Narrative: Exam Narrative: VSS, afebrile GENERAL APPEARANCE: ?normal affect, alert, no distress MOOD: ?appropriate HEENT: normocephalic, neck supple, full ROM CHEST: ?Symmetrical chest wall movement. ?Normal respiratory effort. ?Clear to auscultation HEART: ?regular rate and rhythm ABDOMEN: ?soft, non-tender. Uterine fundus is firm, at Umbilicus, Midline and is appropriate for the stage of recovery. ?Bowel sounds present. PERINEUM: ?mild edema of the perineum, intact. EXTREMITIES: ?normal and no edema Const: Vital Signs, click to edit/add: Vital Signs - 24 hr 06/30/24 13:00 06/30/24 16:00 06/30/24 20:25 Temperature 98.3 F 97.9 F 98.0 F Pulse Rate [Pulse Oximeter] 70 81 73 Respiratory Rate 16 16 18 Blood Pressure [Le ft Arm] 110/64 95/55 L 106/68 Pulse Oximetry 97 98 96 Oxygen Delivery Me thod Room Air Room Air Room Air 07/01/24 01:58 07/01/24 04:01 07/01/24 08:40 Temperature 98.7 F 97.9 F 97.9 F Pulse Rate [Pulse Oximeter] 65 68 71 Respiratory Rate 16 16 16 Blood Pressure [Le ft Arm] 81/41 L 106/63 107/57 L Pulse Oximetry 97 96 97 Oxygen Delivery Me thod Room Air Room Air Room Air Documenting provider has reviewed patient's vital signs: yes OB - DS: Summary Hospital Course Hospital Course: Yuli is a 33 y.o. who was admitted to L & D for labor. ?She had an uncomplicated NVD.?The patient feels well. ?The pain is well controlled with current medications. ?She has no new complaints. ?She is breast feeding and reports things are going well. Her is being transferred to an NICU today and she would like to discharge to be with him.? the patient has done well.? Vitals have been stable.? She has remained afebrile.? Has a good appetite, is tolerating a general diet. ?She is voiding without difficulty.? She is passing gas and has not had a bowel movement.? She is ambulating and denies any dizziness.? Has Small amount of rubra lochia. ?She is considering an IUD for prevention. She is declining all prescriptions on discharge states she has them at home. Was taking iron at home and instructed to continue taking. Peripartum Data Infant delivery method: Vaginal Laceration description: None complications: none Gender: Male Infant Discharge Plan: NICU transfer Status at Discharge Functional status at discharge: independent ambulation Overall status at discharge: patient is progressing back to baseline Time Spent with Patient Time attestation: Total time spent providing and/or coordinating discharge services: Time spent: Less than 30 minutes Discharge Plan Discharge Disposition: Home, Self-Care Date of Admission: 06/29/24 23:09 Attending Provider on Discharge: Jessica Hammonds Primary Care Provider: Provider,Not a Local Condition: Stable Anticipated Discharge Date/Time: 07/01/24 11:00 Discharge Medications: New acetaminophen 500 mg Tablet 1,000 mg PO Q6H PRNQty: 0 0RF ferrous sulfate 325 mg (65 mg iron) Tablet 325 mg PO Q48H Qty: 0 0RF docusate sodium 100 mg Capsule 100 mg PO DAILY Qty: 0 0RF ibuprofen 600 mg Tablet 600 mg PO Q6H PRNQty: 0 0RF Continued esomeprazole magnesium 20 mg tablet,delayed release (DR/EC) 20 mg PO QDAY cyanocobalamin (vitamin B-12) 500 mcg tablet DAILY Discharge Orders: Discharge Order (Routine); Ordered 07/01/24 Ordered By: Jessica Hammonds Patient Education: OB Over the Counter Medication Information, OB Vaginal/Breast Feeding Additional Instructions: Discharge instructions were reviewed with the patient including signs and symptoms of infection and home going medications Nothing vaginally for 6 weeks: no tampons or intercourse Off Work or School for 6 weeks Symptoms to report to doctor: * Bleeding that saturates more than one pad per hour * Passing clots larger than the size of a golf ball * Pain not relieved by prescribed medication * Fever above 100.4 degrees Fahrenheit * A foul vaginal odor * Difficulty in emotions, mood, and functions * Thoughts of hurting yourself and/or * Painful, reddened area in your breast * Any drainage, redness, or tenderness in your IV/epidural site * Severe headache that doesn't improve after taking medications * Changes in vision, including temporary loss of vision, blurred vision, and/or light sensitivity * Upper abdominal pain (usually under ribs on the right side) * Decrease in urination or painful, frequent urinating * Chest pain * Shortness of breath * Tenderness or pain with redness and/swelling in the calf(s) of your leg 2-week visit: discuss infant feeding concerns, review control options and screen for anxiety/depression. 6-week visit for an annual exam. consultation services are available to all mothers and babies for the first year after delivery.? To make an appointment, please call [phone]. Activity Level: Activity as Tolerated Discharge Diet: Regular Follow Up Appointments: [facility] [Provider Group] Forms: MyHealth Info Instructions
[2024-07-02 05:56] LABS: Rapid Plasma Reagin (RPR) Non Reactive (Non Reactive)
== END 2024-07-01 11:52 | disposition home or self-care (01) | DRG 807 ==
LOC: OB OUT 06-30 01:58 → OB 06-30 01:58
PROVIDERS: Admitting Provider Midwife; Visit Provider Advanced Practice Midwife
DX: O66.0 Obstructed labor due to shoulder dystocia (principal); Z37.0 Single live birth; Z3A.40 40 weeks gestation of pregnancy
CPT/HCPCS: 36415; 85018; 85025; 86592; 86850; 86900; 86901; A9270; J7120